=== PATIENT | female | born 1995 | race Two or more races ===

== ENCOUNTER 2017-03-01 12:43 | Outpatient (CLI) | payer OTHER | END 2017-03-01 12:47 | disposition home or self-care (01) | LOC: RAD 12:43 | DX: M54.5 Low back pain (principal) ==

== ENCOUNTER 2018-03-21 21:23 | Emergency (ER) | payer OTHER ==
[~2018-03-21] VITALS: Ht 157.5 cm; Wt 70.8 kg
[2018-03-22] MEDS ORDERED: CEFUROXIME500 MG PO (07:07)
[2018-03-22] MEDS ORDERED: KETO10TA2 PO (07:07)
[2018-03-22] MEDS ORDERED: TAMS0.4C PO ×2 (07:08)
== END 2018-03-22 08:22 | disposition home or self-care (01) ==
LOC: ER 21:23
DX: N20.0 Calculus of kidney (principal); N39.0 Urinary tract infection, site not specified